=== PATIENT | male | born 1960 | race Caucasian/White ===

== ENCOUNTER 2017-02-21 14:25 | Emergency (ER) | payer MEDICARE ==
[2017-02-21] MEDS ORDERED: ATROPINE SULFATE 1 MG/ML VIAL IV ONE ×2 (14:28)
[2017-02-21] MEDS ORDERED: EPINEPHRINE HCL 0.1 MG/ML 10ML SYR IVP ONE ×2 (15:57→15:58)
[2017-02-21] MEDS ORDERED: SODIUM BICARBONATE 50MEQ SYRINGE IVP ONE (15:57)
--- NOTE | 2017-02-21 16:18 | Emergency Department Record ---
History of Present Illness - General Chief Complaint: Code Adult Time Seen by Provider: 02/21/17 16:12 Source: EMS - History of Present Illness Initial Comments: came in full cardiopulmonary arrest. Patient had a combitub placed by EMS adn breath sounds equal bilaterally. Patient was found in his car with nausea and confused and bradycardic upon the arrival of the packing and wrapping supervisor and he coded about one minute after arrival and no history obtain except he was diabetic and glucose checked by EMS 145. ALS drugs used and external pacer applied with no benefit. Patient was in electromechanical disassociation. Patients pupils slightly asymmetric. Patient pronounced [id number]. - Related Data Allergies Allergy/AdvReac Type Severity Reaction Status Date / Time Unable to Assess Allergy Unverified 02/21/17 15:29 Travel Screening - Travel/Exposure Within Last 30 Days Have you traveled within the last 30 days?: Yes [place] Detail:: [place] - Travel/Exposure Within Last Year Have you traveled outside the [place] in the last year?: No - Additonal Travel Details Have you been exposed to anyone with a communicable illness?: No - Travel Symptoms Symptom Screening: None Review of Systems ROS unobtainable: Due to endotracheal tube, Due to mental status Past Medical History - SOCIAL HISTORY Smoking Status: Unknown if ever smoked - ENDOCRINE Hx Diabetes: Yes Family Medical History Any Significant Family History?: Yes Family Hx Comment (NOT TO BE USED IN PLACE OF ITEMS BELOW): Unknown from out of state Physical Exam - General General Appearance: Other (full arrest) - Head Head exam: Normal inspection - Eye Eye exam: Other (slightly irregular pupils) - ENT ENT exam: Other (combitube in place) - Respiratory Respiratory exam: Other (bilateral breath sounds with bagging) - Cardiovascular Cardiovascular Exam: Other (no pulses no heart sounds) - GI/Abdominal GI/Abdominal exam: Distended - Rectal Rectal exam: Deferred - Extremities Extremities exam: Other (I/O in the right lower leg) - Skin Skin exam: Cyanosis Course - Reevaluation(s) Reevaluation #1: state police here and bench examiner is here. Fatuma San 02/21/17 16:26 Reevaluation #2: patient being sent to [facility] . No family members here. Unable to locate next of kin. 02/21/17 16:28 Disposition Clinical Impression: Cardiopulmonary arrest Disposition: / Instructions: Sudden Unexpected (ED) Forms: Patient Portal Access Time of Disposition: 16:26
== END 2017-02-21 17:24 | disposition expired ==
LOC: ER 14:25
DX: I46.9 Cardiac arrest, cause unspecified (principal); E11.9 Type 2 diabetes mellitus without complications
CPT/HCPCS: 92950; 96374; 96375; 99285; J0460